=== PATIENT | male | born 1955 | race Hispanic/Latino ===

== ENCOUNTER 2018-01-08 14:31 | Emergency (ER) | payer OTHER ==
[~2018-01-08 14:31] MED LIST: ATROPINE SULF 1 MG/10 ML SYR IV ONE; DOPAMINE/D5W 400 MG/250 ML BAG IV ONE; RSI MEDICATION KIT IV ONE
[2018-01-08] MEDS ORDERED: EPINEPHrine 1 MG/10 ML SYR IV ONE (14:32)
[2018-01-08 15:01] LABS: Arterial Blood Carboxyhemoglob 0.3 % (0-1.5); Blood Gas Oxyhemoglobin 98.4 % (94-97)
[2018-01-08] MEDS ORDERED: Phenylephrine HCl 10 MG/ML 1 ML VIAL ONE (15:18)
[2018-01-08] MEDS ORDERED: D5W 250 ML IV ONE ×2 (15:19→15:48)
[2018-01-08] MEDS ORDERED: NA CHLORIDE 0.9% 250 ML ONE (15:19)
[2018-01-08 15:24] LABS: Absolute Lymphocytes (CBC) 2.8 K/uL (0.7-4.9); Absolute Monocytes 1.1 K/uL (0.1-1.3); Absolute Neutrophil 13.4 K/uL (1.8-8.0); Eosinophils % 3.3 % (0-4.4); Lymphocytes % 15.5 % (15.3-44.8); MCH 27.3 pg (27.0-35.0); MCV 91.1 fL (80-100); MPV 9.7 fL (7.6-11.3)
[2018-01-08] MEDS ORDERED: NA CHLORIDE 0.9% 1,000 ML ONE (15:24)
[2018-01-08 15:27] LABS: Hematocrit 29.8 % (39.6-49.0); Protime INR 1.74
[2018-01-08] MEDS ORDERED: HYDROCORTISONE SUC 100 MG INJ ONE (15:35)
[2018-01-08 15:38] LABS: Platelet Estimate DECR; Urine White Blood Cell Casts OK
[2018-01-08 15:39] LABS: Blood Morphology Comment NOT SEEN (NOT SEEN)
[2018-01-08] MEDS ORDERED: EPINEPHRINE/PF 1 MG/ML AMP ONE (15:48)
--- NOTE | 2018-01-08 15:50 | RAD REPORT ---
EXAM DESCRIPTION: [facility] Single View01/08/2018 3:10 pm CLINICAL HISTORY: Shortness of breath COMPARISON: none FINDINGS: An endotracheal tube has its tip well above the cayetano. A a nasogastric tube is present wi thin the stomach. A central venous line has been inserted with its tip 1 centimeter into the right atrium. A pneumothor ax is not present. The lungs appear clear of acute infiltrate
[2018-01-08] MEDS ORDERED: VANCOMYCIN/NS 1 gm 1 GM/250 ML BAG ONE (15:56)
[2018-01-08] MEDS ORDERED: CEFEPIME 1 GM/100 ML BAG IV ONE (15:56)
[2018-01-08] MEDS ORDERED: LACTULOSE 20 GM/30 ML UCUP ONE (15:56)
[2018-01-08 15:58] LABS: Albumin 2.1 g/dL (3.2-5.5); Bilirubin Direct 0.8 mg/dL (0-0.2); Bilirubin Total 3.7 mg/dL (0.3-1.2); Magnesium 2.5 mg/dL (1.8-2.5); Protein, Total 4.5 g/dL (6.0-8.3)
[2018-01-08 15:59] LABS: Potassium 5.1 mEq/L (3.6-5.0)
[2018-01-08] MEDS ORDERED: CALCIUM GLUCONATE 1gm/100 ML NS (4.65 mEq/100mL) IV ONE ×2 (16:00)
[2018-01-08] MEDS ORDERED: DOBUTAMINE 250 MG/250 ML BAG IV ONE (16:27)
[2018-01-08] MEDS ORDERED: EPINEPHrine 4 MG in NA CHLORIDE 0.9% 250 ML IV PRN (17:04)
--- NOTE | 2018-01-08 18:26 | ER ---
Nurse's Notes [facility] Name: Kiko Treadwell Age: 63 yrs Sex: Male : 1955 Arrival Date: 01/08/2018 Time: 14:32 Bed 8 Private MD: Janet Cerrato Diagnosis: Alcoholic cirrhosis of liver with ascites;Hypotension;Sepsis;Cardiogenic shock Presentation: 01/08 14:16 Presenting complaint: EMS states: family was with pt and coming back from a [place] party. sv Officer was on scene and pt went unresponsive. On EMS arrival pt was only opening his eyes but not talking. Pt denied CP but EMS stated he might have appeared post ictal. Unable to get a BP. HR 90s but en route HR down to SB-40s. BS-152 Temp-95.2 ETCO2-20s, 18G L AC. 14:16 Method Of Arrival: EMS: [facility] sv 14:16 Acuity: LUC 1 dm5 14:16 Transition of care: patient was not received from another setting of care. Onset of sv symptoms was January 08, 2018. Care prior to arrival: Assisted ventilation. 14:30 Initial Sepsis Screen: Does the patient meet any 2 criteria? Temp <36.0*C (96.8*F)) or sv > 38.3*C (100.4*F). Systolic BP < 90 mmHg. Mean Arterial Pressure (MAP) < 65. Altered Mental Status. Yes Does the patient have a suspected source of infection? No. Patient's initial sepsis screen is negative. If YES to both, name of provider notified: Naresh THORNE. 15:08 Presenting complaint: Pt's sister at bedside and stated that they were driving back sv from [facility] and stopped to get a coke for the pt and came back to the car and pt was lethargic. 911 was called and PD came to see pt until EMS came to pt. Sister stated that yesterday he was playing baseball with family. Sister stated that his last alcohol might have been yesterday. Triage Assessment: 14:16 General: Appears distressed, Behavior is unresponsive. Pain: Unable to use pain scale. sv FLACC scale score is 0 out of 10. Patient is unresponsive. EENT: No signs and/or symptoms were reported regarding the EENT system. Neuro: Level of Consciousness is unresponsive, Oriented to none Pupils are fixed, dilated. Cardiovascular: Capillary refill is > 3 seconds in bilateral fingers toes Pulses are 1+ in right radial artery, left radial artery, left carotid pulse and right carotid pulse Rhythm is sinus bradycardia. Respiratory: Respiratory effort is weak, Respiratory pattern is pt being bagged by ambu bag by EMS Onset: The symptoms/episode began/occurred today, the patient has severe shortness of breath. GI: Abdomen is round distended, noted to have ascites. : No signs and/or symptoms were reported regarding the genitourinary system. Derm: Skin with poor turgor Skin is dusky, icteric, jaundiced, Skin temperature is cold discoloration noted to the BLE. Historical: - Allergies: 16:51 No Known Allergies; sv - PMHx: 16:51 COPD; Hyperlipidemia; Gout; Hypertensive heart disease; Cardiomyopathy; Cirrhosis; PAD; sv - Immunization history:: Adult Immunizations unknown. - Social history:: Patient uses alcohol, on a daily basis. Smoking status: unknown. Screenin:00 Abuse screen: Denies threats or abuse. Denies injuries from another. Nutritional sv screening: No deficits noted. Tuberculosis screening: No symptoms or risk factors identified. Fall Risk No fall in past 12 months (0 pts). Secondary diagnosis (15 points) impaired mobility, IV access (20 points). Ambulatory Aid- None/Bed Rest/Nurse Assist (0 pts). Gait- Normal/Bed Rest/Wheelchair (0 pts) Mental Status- Overestimates/Forgets Limitations (15 pts.). Total Garcia Fall Scale indicates High Risk Score (45 or more points). Fall prevention measures have been instituted. Side Rails Up X 2 Placed Close to Nursing Station 1:1 Attendant Assigned Frequent Obs/Assessments Occuring As available patient and family educated on Fall Prevention Program and Strategies. Assessment: 15:00 Reassessment: No changes from previously documented assessment. Pt remains intubated. sv 15:10 Reassessment: Cardiology paged, spoke with jon ha for a EKG in bed 3, EKG on sg the way at this time. 15:27 General: Appears ill, Behavior is unresponsive. Pain: Unable to use pain scale. FLACC sv scale score is 0 out of 10. Patient is unresponsive. Neuro: Level of Consciousness is unresponsive, Pupils are fixed, dilated. Respiratory: Airway is patent via oral intubation Respiratory effort is even, unlabored, Respiratory pattern is regular, symmetrical. Derm: Skin is mottled, from stomach down to BLE. 16:30 Reassessment: No changes from previously documented assessment. Pt remains intubated. sv Family at bedside. 16:52 Reassessment: Naresh THORNE and Dr Winston at bedside, speaking with family regarding code sv status. Son to call his sister to discuss and have a plan. 17:00 Reassessment: Pt remains intubated. sv 17:13 Reassessment: Son decided to withdraw care. sv 17:15 Reassessment: Time of pronounced by Naresh THORNE and Dr Winston, who are at bedside. sv 17:15 Reassessment: All IV drips and meds stopped per Naresh THORNE. sv 18:34 Reassessment: [facility] called and spoke with Alesia Orourke. Pt not a candidate for organ sv or tissue donation. 18:43 Reassessment: ET tube, gastric tube and vu removed per judge King and FADUMO Lynn. 19:19 Reassessment: pt son, mukul Treadwell, chose [facility] home. Roldan ha ak1 contacted [facility] for transport. . 19:43 General: body released to [facility] home per pt's son, Mukul Treadwell, request. . ak1 Vital Signs: 14:20 Weight 75 kg; sv 14:20 Pulse 38 MON; sv 14:24 Pulse 42; sv 14:25 Pulse 90; Resp 18 A; sv 14:33 Pulse 109; Resp 15 A; sv 14:40 BP 135 / 118; Pulse 117; sv 14:45 BP 139 / 119; Pulse 120; Temp 93.2(C); sv 14:55 Pulse 108; Resp 17 A; Temp 95.6(C); sv 14:59 Pulse Ox 100% on ETT vent; sv 15:05 BP 55 / 41; Pulse 94; Resp 16; Temp 96.4(C); Pulse Ox 100% on ETT vent; sv 15:12 BP 36 / 20; Pulse 78; Resp 16; Pulse Ox 100% on ETT vent; sv 15:27 Pulse 57; Resp 16 A; sv 15:27 BP 72 / 25; Pulse 63; Resp 16; Pulse Ox 99% on ETT vent; sv 15:31 BP 72 / 25 LA (auto/reg); Pulse 71; Resp 16; sv 15:45 BP 53 / 43; Pulse 80; Resp 16; Pulse Ox 100% on ETT vent; sv 15:52 BP 53 / 43; Pulse 100; Resp 16 A; Pulse Ox 100% on ETT vent; sv 15:56 BP 52 / 29; Pulse 100; Resp 16; Pulse Ox 99% on ETT vent; sv 16:06 BP 92 / 34; Pulse 97; Resp 20; Pulse Ox 100% on ETT vent; sv 16:10 BP 92 / 34; Pulse 97; Resp 20 A; Temp 96.4(C); Pulse Ox 100% on 50% FiO2 ETT vent; sv 16:17 BP 59 / 37; Pulse 93; Resp 20; Pulse Ox 99% on ETT vent; sv 16:23 BP 39 / 24; Pulse 92; Resp 20; Pulse Ox 99% on ETT vent; sv 16:25 BP 60 / 30; Pulse 89; Resp 20; Pulse Ox 97% on ETT vent; sv 16:30 BP 67 / 33; Pulse 90; Resp 20; Pulse Ox 99% on ETT vent; sv 16:36 BP 63 / 27; Pulse 76; Resp 20; Pulse Ox 100% on ETT vent; sv 16:42 BP 39 / 27; Pulse 67; Resp 20; Pulse Ox 96% on ETT vent; sv 16:47 BP 66 / 22; Pulse 69; Resp 20; Pulse Ox 99% on ETT vent; sv 17:07 BP 85 / 23; Pulse 43; Resp 20; Pulse Ox 72% on ETT vent; sv 17:13 BP 85 / 23; Pulse 39; Resp 20; Temp 95.8; sv 17:15 Pulse 43 MON; sv 14:20 Sinus bradycardia sv 14:24 Sinus bradycardia sv 14:25 Sinus bradycardia sv 14:33 Sinus bradycardia sv 14:40 Sinus bradycardia sv 14:45 Sinus bradycardia sv 14:55 Sinus bradycardia sv 14:59 Sinus bradycardia sv 15:27 Sinus bradycardia sv 15:31 Sinus bradycardia sv 15:52 Sinus bradycardia sv 16:10 Sinus bradycardia sv 17:13 PEA sv 17:15 PEA sv 15:31 pulse confirmed by Ultrasound by Dr Winston sv 15:52 rate on ventilator increased to 20 bpm by Naresh THORNE sv 17:13 confirmed by Ultasound by Dr Winston sv [place] Coma Score: 18:11 Eye Response: none(1). Verbal Response: none(1). Motor Response: none(1). Modifying jr8 Factors: Intubated. Total: 3. ED Course: 14:16 Maintain EMS IV. Dressing intact. Good blood return noted. Site clean \T\ dry. Gauge \T\ sv site: 18G L AC. Flushed left antecubital with 5 ml normal saline. Assist ventilation with Ambu bag. 14:20 Assisted provider with intubation using 7.5 mm ETT via oral route. ET tube secured at sv 23cm at the teeth. Set up intubation tray. Intubated by Naresh THORNE Placement verified by CXR, CO2 detector w/ + color change, auscultating bilateral breath sounds, Patient tolerated poorly. 14:24 Inserted saline lock: 20 gauge in right wrist, using aseptic technique. ,using aseptic sv technique. done by Rola ALFRED. 14:30 Patient has correct armband on for positive identification. Placed in gown. Bed in low sg position. Call light in reach. Side rails up X2. library monitor on. Pulse ox on. NIBP on. 14:32 Patient arrived in ED. hb 14:36 Assisted provider with central line placement. Set up central line tray. Triple lumen sv line placed in right subclavian. Line placed by Naresh THORNE Placement verified by CXR, blood return, Dressed with Tegaderm, Blood was collected. Patient tolerated poorly. Before procedure, did Practitioner(s) obtain informed consent? No. Patient \T\ family education about procedure, CLABSI prevention and S/S of infection? No. Time-out/Briefing performed prior to start of procedure? Yes. Was handwashing/sanitizing done immediately prior to procedure? Yes. Was patient positioned to in a way to prevent air embolism? Yes. Was procedure site sterilized? Yes, with chlorhexidine. Was the site allowed to dry? Yes. Was local anesthetic and/or sedation utilized? Yes. During the procedure, did the Practitioner(s) maintain a sterile field? Yes. Were unused ports clamped during insertion? Yes. Was a 2nd qualified MD obtained after 3 unsuccessful insertion attempts? Yes. Was blood aspirated from each lumen? Yes. After the procedure, did the Practitioner(s) clean the site and apply a sterile dressing? Yes. 14:36 Initial lab(s) drawn, by me, sent to lab. sv 14:36 First set of blood cultures drawn by me. sv 14:37 Gabriel Winston MD is Attending Physician. gs 14:40 Vu cath inserted, using sterile technique, 16 Fr., by me, balloon inflated, other no sg urine output noted at this time. 14:40 Arm band placed on right wrist. sv 14:50 Naresh Parekh PA is PHCP. jr8 14:50 NGT: inserted 12 Fr. via left nare. verified placement of air over stomach, verified sg return of gastric contents, to intermittent suction. Returned gastric contents. Patient tolerated well. 14:50 Second set of blood cultures drawn by me. sv 14:55 Thermoregulation: Francis blanket applied. sv 14:59 ABG drawn. by RT staff, on oxygen. sv 15:00 Emma Do RN is Primary Nurse. sv 15:09 X-ray completed. Portable x-ray completed in exam room. Patient tolerated procedure sw well. 15:11 XRAY Chest (1 view) In Process Unspecified. EDMS 15:12 Janet Cerrato is Private Physician. sg 15:23 Triage completed. dm5 15:36 EKG done, by plant and maintenance technician. reviewed by Naresh THORNE. at1 17:15 One-on-one care X 180 minutes. sv 17:46 notified lj pd to call slunk skinner. bd 18:22 Naresh Parekh PA is Pronouncing Provider. jr8 19:09 Procalcitonin Sent. sv Administered Medications: Discontinued: Dopamine drip 10 mcg/kg/min - (DOPamine 400 mg, D5W 250 ml) IV at calculated rate continuous; Titrate to keep systolic blood pressure greater than 90mmHg Discontinued: Epinephrine Drip - (EPINEPHrine (PF) 4 mg, Sodium Chloride 0.9% 250 ml) IV at calculated rate Per protocol; Start at 1 mcg/min; titrate upto 10 mcg/min to maintain SBP>90 mmHg Discontinued: Constantino-Synephrine 100 mcg/min IV at calculated rate continuous; (Standard dilution is 50 mg in 250 mL D5W, final concentration 200 mcg/mL) Discontinued: DOBUTamine (250 mg/250mL premix) 5 mcg/kg/min IV at calculated rate continuous; (standard concentration 1000 mcg/mL) 14:16 Drug: NS 0.9% 1000 ml Route: IV; Rate: 1000 ml; Site: left antecubital; sv 15:15 Follow up: Response: No adverse reaction; IV Status: Completed infusion; IV Intake: sv 1000ml 14:23 Drug: Atropine 0.5 mg Route: IVP; Site: left antecubital; sv 17:42 Follow up: Response: No adverse reaction sv 14:24 Drug: Atropine 0.5 mg Route: IVP; Site: left antecubital; sv 17:41 Follow up: Response: No adverse reaction sv 14:28 Drug: Dopamine drip 10 mcg/kg/min - (DOPamine 400 mg, D5W 250 ml) Route: IV; Rate: sv calculated rate; Site: left antecubital; 14:31 Follow up: Rate change 15 calculated rate sv 14:36 Follow up: Rate change 20 calculated rate sv 14:40 Follow up: CL placed on Dopamine dripped changed to CL. sv 14:45 Follow up: Rate change 15 calculated rate sv 15:08 Follow up: Rate change 20 calculated rate sv 16:06 Follow up: Rate change 15 calculated rate sv 15:15 Drug: NS 0.9% 1000 ml Route: IV; Rate: 1000 ml; Site: right subclavian; sv 16:15 Follow up: Response: No adverse reaction; IV Status: Completed infusion; IV Intake: sv 1000ml 15:23 Drug: Constantino-Synephrine 100 mcg/min Route: IV; Rate: calculated rate; Site: right sv subclavian; 15:29 Follow up: Rate change 180 mcg/min sv 16:47 Follow up: Rate change 200 mcg/min sv 15:39 Drug: HydroCORTISONE 100 mg Route: IVP; Site: right subclavian; sv 17:41 Follow up: Response: No adverse reaction sv 15:52 Drug: Epinephrine Drip - (EPINEPHrine (PF) 4 mg, Sodium Chloride 0.9% 250 ml) Route: sv IV; Rate: calculated rate; Site: right subclavian; 16:22 Follow up: Rate change 15 mcg/min sv 16:52 Follow up: Rate change 25 calculated rate sv 17:13 Follow up: Rate change 30 calculated rate sv 16:06 Drug: vancoMYCIN 1 grams Route: IVPB; Infused Over: 2 hrs; Site: left antecubital; sv 17:10 Follow up: Response: No adverse reaction; IV Status: Completed infusion; IV Intake: sv 200ml 16:06 Drug: Cefepime 1 grams Route: IVPB; Rate: 200 ml/hr; Infused Over: 30 mins; Site: left sv antecubital; 16:40 Follow up: Response: No adverse reaction; IV Status: Completed infusion; IV Intake: sv 100ml 16:10 Drug: Calcium Gluconate 1 grams Route: IVPB; Infused Over: 60 mins; Site: left sv antecubital; 16:37 Follow up: Response: No adverse reaction; IV Status: Completed infusion; IV Intake: sv 100ml 16:22 Drug: Lactulose 30 grams Volume: 45 ml; Route: PO; sv 17:41 Follow up: Response: No adverse reaction sv 16:32 Drug: DOBUTamine (250 mg/250mL premix) 5 mcg/kg/min Route: IV; Rate: calculated rate; sv Site: right subclavian; 16:45 Follow up: Rate change 15 mcg/kg/min sv 16:49 Follow up: Rate change 20 mcg/kg/min sv 17:13 Drug: Sodium Bicarbonate 1 amp Route: IVP; Site: left antecubital; sv 17:42 Follow up: Response: No adverse reaction sv Point of Care Testing: Blood Glucose: 14:31 Blood Glucose: 104 mg/dL; sv Ranges: Intake: 15:15 IV: 1000ml; Total: 1000ml. sv 16:15 IV: 1000ml; Total: 2000ml. sv 16:37 IV: 100ml; Total: 2100ml. sv 16:40 IV: 100ml; Total: 2200ml. sv 17:10 IV: 200ml; Total: 2400ml. sv Ventilator: 14:31 Fi02: 100%; Rate: 16min; T.V.: 500ml; Mode: CMV; sv 14:59 Fi02: 50%; Rate: 16min; T.V.: 400ml; Mode: CMV; sv Outcome: 17:15 Patient : Time of 17:15 Pronounced by Naresh THORNE sv 17:15 Condition: 19:42 Patient : Body to home. ak1 19:43 Patient left the ED. ak1 Signatures: Dispatcher [employer] EDMS Remedios Wymanara bd Markwardt, Ally, RN RN dm5 Emma Do RN RN sv Thomas Eric, RN AUBRIE sg Rola Hansen RN RN ss Roszak, Josh, PA PA jr8 Jon funk, packing machine inspector EKG Tat1 Myrna Ugarte, RN RN ak1 Sudha uL Heather, RN RN hb Starr, Gregory, MD MD gs Corrections: (The following items were deleted from the chart) 17:45 14:20 Assisted provider with central line placement. Set up central line tray. Triple sv lumen line placed in right subclavian. Line placed by Naresh THORNE Placement verified by CXR, blood return, Dressed with Tegaderm, Blood was collected. Patient tolerated poorly. Before procedure, did Practitioner(s) obtain informed consent? No. Patient \T\ family education about procedure, CLABSI prevention and S/S of infection? No. Time-out/Briefing performed prior to start of procedure? Yes. Was handwashing/sanitizing done immediately prior to procedure? Yes. Was patient positioned to in a way to prevent air embolism? Yes. Was procedure site sterilized? Yes, with chlorhexidine. Was the site allowed to dry? Yes. Was local anesthetic and/or sedation utilized? Yes. During the procedure, did the Practitioner(s) maintain a sterile field? Yes. Were unused ports clamped during insertion? Yes. Was a 2nd qualified MD obtained after 3 unsuccessful insertion attempts? Yes. Was blood aspirated from each lumen? Yes. After the procedure, did the Practitioner(s) clean the site and apply a sterile dressing? Yes. sv 18:45 14:45 BP 139 / 119; Pulse 120bpm; sv sv 18:45 15:05 BP 55 / 41; Pulse 94bpm; Resp 16bpm; Pulse Ox 100% ET / Ventilator; sv sv
--- NOTE | 2018-01-08 18:26 | EDPHYS ---
Physician Documentation [facility] Name: Kiko Treadwell Age: 63 yrs Sex: Male : 1955 Arrival Date: 01/08/2018 Time: 14:32 Bed 8 Private MD: Janet Cerrato ED Physician Gabriel Winston HPI: 01/08 18:11 This 63 yrs old Male presents to ER via EMS with complaints of Breathing jr8 Difficulty. 18:11 Onset: The symptoms/episode began/occurred acutely, today. Duration: The symptoms are jr8 continuous. The patient's shortness of breath has no apparent modifying factors. Associated signs and symptoms: Pertinent positives: AMS. Severity of symptoms: At their worst the symptoms were severe. It is unknown whether or not the patient has had similar symptoms in the past. It is unknown whether or not the patient has recently seen a physician. Family stated that while driving back to there house patient was sitting in back seat with a drink. All of a sudden noticed that he was unresponsive and slumped over. EMS immediately called. Patient brought in by EMS with assisted ventilations. No response upon arrival and with agonal respirations. Initial GCS of 3. Family stated that he celebrated his birthday yesterday and was doing well today. Had not complained of anything . Historical: - Allergies: 16:51 No Known Allergies; sv - PMHx: 16:51 COPD; Hyperlipidemia; Gout; Hypertensive heart disease; Cardiomyopathy; Cirrhosis; PAD; sv - Immunization history:: Adult Immunizations unknown. - Social history:: Patient uses alcohol, on a daily basis. Smoking status: unknown. ROS: 18:11 Unable to obtain ROS due to obtunded state. jr8 Exam: 18:11 Head/Face: Normocephalic, atraumatic. Eyes: Pupils size 6 bilaterally and fixed. jr8 Sclera with normal tint. Conjunctiva non-incteric and not injected ENT: Oropharynx with no redness, swelling, or masses, exudates, or evidence of obstruction, uvula midline. Mucous membranes moist. Neck: Trachea midline, no thyromegaly or masses palpated, and no cervical lymphadenopathy. Supple, full range of motion Chest/axilla: Normal chest wall appearance and motion. Nontender with no deformity. No lesions are appreciated. Cardiovascular: Sinus Bradycardia. Weak carotid pulses. No radial or femoral pulses appreciated upon palpation Respiratory: Lungs have equal breath sounds bilaterally, clear to auscultation on ventilator Abdomen/GI: Soft with mild distension Skin: Dry, cool, and with mottling 18:11 MS/ Extremity: Full, normal range of motion. Vital Signs: 14:20 Weight 75 kg; sv 14:20 Pulse 38 MON; sv 14:24 Pulse 42; sv 14:25 Pulse 90; Resp 18 A; sv 14:33 Pulse 109; Resp 15 A; sv 14:40 BP 135 / 118; Pulse 117; sv 14:45 BP 139 / 119; Pulse 120; Temp 93.2(C); sv 14:55 Pulse 108; Resp 17 A; Temp 95.6(C); sv 14:59 Pulse Ox 100% on ETT vent; sv 15:05 BP 55 / 41; Pulse 94; Resp 16; Temp 96.4(C); Pulse Ox 100% on ETT vent; sv 15:12 BP 36 / 20; Pulse 78; Resp 16; Pulse Ox 100% on ETT vent; sv 15:27 Pulse 57; Resp 16 A; sv 15:27 BP 72 / 25; Pulse 63; Resp 16; Pulse Ox 99% on ETT vent; sv 15:31 BP 72 / 25 LA (auto/reg); Pulse 71; Resp 16; sv 15:45 BP 53 / 43; Pulse 80; Resp 16; Pulse Ox 100% on ETT vent; sv 15:52 BP 53 / 43; Pulse 100; Resp 16 A; Pulse Ox 100% on ETT vent; sv 15:56 BP 52 / 29; Pulse 100; Resp 16; Pulse Ox 99% on ETT vent; sv 16:06 BP 92 / 34; Pulse 97; Resp 20; Pulse Ox 100% on ETT vent; sv 16:10 BP 92 / 34; Pulse 97; Resp 20 A; Temp 96.4(C); Pulse Ox 100% on 50% FiO2 ETT vent; sv 16:17 BP 59 / 37; Pulse 93; Resp 20; Pulse Ox 99% on ETT vent; sv 16:23 BP 39 / 24; Pulse 92; Resp 20; Pulse Ox 99% on ETT vent; sv 16:25 BP 60 / 30; Pulse 89; Resp 20; Pulse Ox 97% on ETT vent; sv 16:30 BP 67 / 33; Pulse 90; Resp 20; Pulse Ox 99% on ETT vent; sv 16:36 BP 63 / 27; Pulse 76; Resp 20; Pulse Ox 100% on ETT vent; sv 16:42 BP 39 / 27; Pulse 67; Resp 20; Pulse Ox 96% on ETT vent; sv 16:47 BP 66 / 22; Pulse 69; Resp 20; Pulse Ox 99% on ETT vent; sv 17:07 BP 85 / 23; Pulse 43; Resp 20; Pulse Ox 72% on ETT vent; sv 17:13 BP 85 / 23; Pulse 39; Resp 20; Temp 95.8; sv 17:15 Pulse 43 MON; sv 14:20 Sinus bradycardia sv 14:24 Sinus bradycardia sv 14:25 Sinus bradycardia sv 14:33 Sinus bradycardia sv 14:40 Sinus bradycardia sv 14:45 Sinus bradycardia sv 14:55 Sinus bradycardia sv 14:59 Sinus bradycardia sv 15:27 Sinus bradycardia sv 15:31 Sinus bradycardia sv 15:52 Sinus bradycardia sv 16:10 Sinus bradycardia sv 17:13 PEA sv 17:15 PEA sv 15:31 pulse confirmed by Ultrasound by Dr Winston sv 15:52 rate on ventilator increased to 20 bpm by Naresh THORNE sv 17:13 confirmed by Ultasound by Dr Winston sv [place] Coma Score: 18:11 Eye Response: none(1). Verbal Response: none(1). Motor Response: none(1). Modifying jr8 Factors: Intubated. Total: 3. Ventilator: 14:31 Fi02: 100%; Rate: 16min; T.V.: 500ml; Mode: CMV; sv 14:59 Fi02: 50%; Rate: 16min; T.V.: 400ml; Mode: CMV; sv Procedures: 18:03 Intubation: Ventilated with 100% NRB prior to procedure. Intubated orally using # 4 jr8 Charla blade with 7.5 mm ETT. was successful on first attempt. Ventilated with Ambu bag. ventilator. Cricoid pressure applied during procedure. Tube secured with ETT bender measured 23 cm at lip. Placement verified by CXR, CO2 detector with (+) color change, auscultating bilateral breath sounds, O2 saturation after procedure was 100 %. Central Line: the site was prepped with Betadine, in sterile fashion, a triple lumen catheter was inserted, in the right subclavian vein, in 1 attempts. placement was verified, by blood return, the site was dressed with 4X4s, Tegaderm, foam tape, using sterile technique, the patient tolerated the procedure, well. MDM: 14:37 Patient medically screened. gs 18:03 Data reviewed: vital signs, nurses notes, lab test result(s), EKG, radiologic studies, jr8 plain films. Data interpreted: Pulse oximetry: on ventilator is 100 %. Interpretation: normal. Response to treatment: There is no appreciated change of the patient's symptoms at this time, still hypotensive. ED course: Patient was to unstable to send to CT for neurologic evaluation. ED course: Patient came in with agonal respirations, bradycardic, hypotensive. Patient immediately intubated and was given fluids and atropine. Dopamine initially given as well. HR elevated and normalized. Blood pressure remained at a severely hypotensive level. Subsequently Constantino-synephrine and epinephrine drips were given. After bedside US done by cardiology dapartment patient was shown to have EF of only about 20 % with global hypokinesis. Dobutamine was started instead of dopamine. Glucagon, bicarb, and hydrocortisone along with antibiotics were also given. No response to any treatment. At that time Dr. Winston and I counseled son and sister of patient about his critical condition. Family agreed that if he were to go into cardiac arrest that we would withdrawal care. Shortly after patient went into PEA and care was withdrawn at 17:15. 18:42 ED course: seen and examined patient in room from time of arrival to expiration, during gs all interventions and procedures agree with management, direct supervision and assistance with all procedures. fast exam by me + for ascites only. discuss withdrawal of support with family. amenable to terminating effort when pt lost pressure and pulse.. 01/08 14:39 Order name: Basic Metabolic Panel; Complete Time: 16:30 gs 01/08 14:39 Order name: BNP; Complete Time: 15:50 gs 01/08 14:39 Order name: CBC with Diff; Complete Time: 15:50 gs 01/08 14:39 Order name: LFT's; Complete Time: 16:30 gs 01/08 14:39 Order name: Magnesium; Complete Time: 16:30 gs 01/08 14:39 Order name: PT-INR; Complete Time: 15:50 gs 01/08 14:39 Order name: Troponin (emerg Dept Use Only); Complete Time: 16:30 gs 01/08 14:39 Order name: ABG; Complete Time: 15:50 gs 01/08 14:41 Order name: Blood Culture* gs 01/08 14:41 Order name: Lactate; Complete Time: 16:30 gs 01/08 14:50 Order name: AMMONIA; Complete Time: 15:50 gs 01/08 14:50 Order name: Procalcitonin jr8 01/08 14:51 Order name: Procalcitonin; Complete Time: 16:30 EDMS 01/08 14:58 Order name: glucometer results - FOR PT WITH NO ID; Complete Time: 15:50 ss 01/08 14:39 Order name: XRAY Chest (1 view); Complete Time: 15:50 gs 01/08 15:28 Order name: CBC Smear Scan; Complete Time: 15:50 EDMS 01/08 14:39 Order name: EKG; Complete Time: 14:40 gs 01/08 14:39 Order name: Cardiac monitoring; Complete Time: 16:16 gs 01/08 14:39 Order name: EKG - Nurse/Tech; Complete Time: 16:16 gs 01/08 14:39 Order name: IV Saline Lock; Complete Time: 16:16 gs 01/08 14:39 Order name: Labs collected and sent; Complete Time: 16:16 gs 01/08 14:39 Order name: O2 Per Protocol; Complete Time: 16:16 gs 01/08 14:39 Order name: O2 Sat Monitoring; Complete Time: 16:16 gs Administered Medications: Discontinued: Dopamine drip 10 mcg/kg/min - (DOPamine 400 mg, D5W 250 ml) IV at calculated rate continuous; Titrate to keep systolic blood pressure greater than 90mmHg Discontinued: Epinephrine Drip - (EPINEPHrine (PF) 4 mg, Sodium Chloride 0.9% 250 ml) IV at calculated rate Per protocol; Start at 1 mcg/min; titrate upto 10 mcg/min to maintain SBP>90 mmHg Discontinued: Constantino-Synephrine 100 mcg/min IV at calculated rate continuous; (Standard dilution is 50 mg in 250 mL D5W, final concentration 200 mcg/mL) Discontinued: DOBUTamine (250 mg/250mL premix) 5 mcg/kg/min IV at calculated rate continuous; (standard concentration 1000 mcg/mL) 14:16 Drug: NS 0.9% 1000 ml Route: IV; Rate: 1000 ml; Site: left antecubital; sv 15:15 Follow up: Response: No adverse reaction; IV Status: Completed infusion; IV Intake: sv 1000ml 14:23 Drug: Atropine 0.5 mg Route: IVP; Site: left antecubital; sv 17:42 Follow up: Response: No adverse reaction sv 14:24 Drug: Atropine 0.5 mg Route: IVP; Site: left antecubital; sv 17:41 Follow up: Response: No adverse reaction sv 14:28 Drug: Dopamine drip 10 mcg/kg/min - (DOPamine 400 mg, D5W 250 ml) Route: IV; Rate: sv calculated rate; Site: left antecubital; 14:31 Follow up: Rate change 15 calculated rate sv 14:36 Follow up: Rate change 20 calculated rate sv 14:40 Follow up: CL placed on Dopamine dripped changed to CL. sv 14:45 Follow up: Rate change 15 calculated rate sv 15:08 Follow up: Rate change 20 calculated rate sv 16:06 Follow up: Rate change 15 calculated rate sv 15:15 Drug: NS 0.9% 1000 ml Route: IV; Rate: 1000 ml; Site: right subclavian; sv 16:15 Follow up: Response: No adverse reaction; IV Status: Completed infusion; IV Intake: sv 1000ml 15:23 Drug: Constantino-Synephrine 100 mcg/min Route: IV; Rate: calculated rate; Site: right sv subclavian; 15:29 Follow up: Rate change 180 mcg/min sv 16:47 Follow up: Rate change 200 mcg/min sv 15:39 Drug: HydroCORTISONE 100 mg Route: IVP; Site: right subclavian; sv 17:41 Follow up: Response: No adverse reaction sv 15:52 Drug: Epinephrine Drip - (EPINEPHrine (PF) 4 mg, Sodium Chloride 0.9% 250 ml) Route: sv IV; Rate: calculated rate; Site: right subclavian; 16:22 Follow up: Rate change 15 mcg/min sv 16:52 Follow up: Rate change 25 calculated rate sv 17:13 Follow up: Rate change 30 calculated rate sv 16:06 Drug: vancoMYCIN 1 grams Route: IVPB; Infused Over: 2 hrs; Site: left antecubital; sv 17:10 Follow up: Response: No adverse reaction; IV Status: Completed infusion; IV Intake: sv 200ml 16:06 Drug: Cefepime 1 grams Route: IVPB; Rate: 200 ml/hr; Infused Over: 30 mins; Site: left sv antecubital; 16:40 Follow up: Response: No adverse reaction; IV Status: Completed infusion; IV Intake: sv 100ml 16:10 Drug: Calcium Gluconate 1 grams Route: IVPB; Infused Over: 60 mins; Site: left sv antecubital; 16:37 Follow up: Response: No adverse reaction; IV Status: Completed infusion; IV Intake: sv 100ml 16:22 Drug: Lactulose 30 grams Volume: 45 ml; Route: PO; sv 17:41 Follow up: Response: No adverse reaction sv 16:32 Drug: DOBUTamine (250 mg/250mL premix) 5 mcg/kg/min Route: IV; Rate: calculated rate; sv Site: right subclavian; 16:45 Follow up: Rate change 15 mcg/kg/min sv 16:49 Follow up: Rate change 20 mcg/kg/min sv 17:13 Drug: Sodium Bicarbonate 1 amp Route: IVP; Site: left antecubital; sv 17:42 Follow up: Response: No adverse reaction sv Point of Care Testing: Blood Glucose: 14:31 Blood Glucose: 104 mg/dL; sv Ranges: Critical Glucose Levels:Adult <50 mg/dl or >400 mg/dl <40 mg/dl or >180 mg/dl Disposition: 18:11 Critical Care:. jr8 18:22 . jr8 Disposition: Patient pronounced on 01/08/18 17:15 by Naresh Parekh. Impression: Alcoholic cirrhosis of liver with ascites, Hypotension, Sepsis, Cardiogenic shock. - Released to Home. Critical care time excluding procedures: 18:11 Critical care time: Bedside Care: 30 minutes, Consultation: 10 minutes, Family jr8 Intervention: 20 minutes. Total time: 60 minutes Addendum: 01/12/2018 19:15 Co-signature as Attending Physician, Gabriel Winston MD. g s Signatures: Dispatcher [employer] Emma Cooper RN RN sv Naresh Parekh PA PA jr8 Myrna Ugarte RN RN wy1 Gabriel Winston MD MD Corrections: (The following items were deleted from the chart) 01/08 18:30 18:03 ED course: Patient came in with agonal respirations, bradycardic, hypotensive. jr8 Patient immediately intubated and was given fluids and atropine. Dopamine initially given as well. HR elevated and normalized. Blood pressure remained at a severely hypotensive level. Subsequently Constantino-synephrine and epinephrine drips were given. After bedside US done by cardiology apartment patient was shown to have EF of only about 20 % with global hypokinesis. Dobutamine was started instead of dopamine. Glucagon, bicarb, and hydrocortisone along with antibiotics were also given. No response to any treatment. At that time Dr. Winston and I counseled son and sister of patient about his critical condition. Family agreed that if he were to go into cardiac arrest that we would withdrawal care. Shortly after patient went into PEA and care was withdrawn at 17:15. jr8 19:09 14:39 Urine Dipstick-Ancillary ordered. sv 19:43 18:26 01/08/2018 18:26 Patient pronounced on 01/08/2018 at 17:15 by Naresh Parekh. ak1 Impression: Alcoholic cirrhosis of liver with ascites; Hypotension; Sepsis; Cardiogenic shock. Released to Home. jr8
--- NOTE | 2018-01-08 21:25 | EKG ---
Test Date: 2018-01-08 Test Time: 15:21:47 Vessel Operator: JACQUELINE MEASUREMENT RESULTS: Intervals: Rate: 57 AK: 136 QRSD: 92 QT: 398 QTc: 387 [place]: P: 48 AK: 136 QRS: -88 T: 57 INTERPRETIVE STATEMENTS: Sinus bradycardia Left axis deviation Pulmonary disease pattern Abnormal ECG No previous ECG available for comparison Electronically Signed On 01-08-18 21:24:45 CDT by Huey Martino
== END 2018-01-08 19:43 | disposition expired ==
LOC: ER 14:31
PROC: 0BH17EZ Insertion of Endotracheal Airway into Trachea, Via Natural or Artificial Opening (ICD-10-PCS; principal; 2018-01-08)
PROC: 5A1935Z Respiratory Ventilation, Less than 24 Consecutive Hours (ICD-10-PCS; 2018-01-08)
PROC: 05H733Z Insertion of Infusion Device into Right Axillary Vein, Percutaneous Approach (ICD-10-PCS; 2018-01-08)
DX: R57.0 Cardiogenic shock (principal); K70.31 Alcoholic cirrhosis of liver with ascites; A41.9 Sepsis, unspecified organism; I11.9 Hypertensive heart disease without heart failure; J44.9 Chronic obstructive pulmonary disease, unspecified
CPT/HCPCS: 31500; 36415; 36556; 51702; 71045; 80048; 80076; 82140; 82805; 82962; 83605; 83735; 83880; 84145; 84484; 85025; 85610; 87040 ×2; 87205 ×4; 93005; 94002; 99291; 99292; J0171 ×2; J0610; J0692; J1250; J1265; J1720; J2370; J3370; J7030; J7060 ×3; 87077; 87186